=== PATIENT | female | born 1990 | race Two or more races ===

== ENCOUNTER 2020-03-01 20:08 | Inpatient (IN) | payer MEDICAID ==
[~2020-03-01] VITALS: Ht 152.4 cm; Wt 115.7 kg
[2020-03-01] MEDS ORDERED: PREN-182 PO (20:17)
[2020-03-01] MEDS ORDERED: CARBOPROST TROMETHAMINE 250 MCG/ML AMPUL IM PRN (21:30)
[2020-03-01] MEDS ORDERED: NALOXONE HCL 0.4 MG/ML 1ML VIAL IM PRN (21:30)
[2020-03-01] MEDS ORDERED: LACTATED RINGERS 1,000 ML IV SCH (21:30)
[2020-03-01] MEDS ORDERED: DEXT 5%/LR + PITOCIN 20UNITS/L 1,000 ML IV SCH (21:30)
[2020-03-01] MEDS ORDERED: METHYLERGONOVINE MALEATE 0.2 MG/ML IM PRN (21:30)
[2020-03-01 21:45] LABS: BASOPHILS % 0.4 % (0.0-2.0); EOSINOPHILS % 1.1 % (0.0-5.0); HEMATOCRIT. 34.9 % (36.0-48.0); HEMOGLOBIN. 11.9 g/dL (12.0-16.0); LYMPHOCYTES % 13.9 % (20.0-50.0); MEAN CORPUSCULAR HEMOGLOBIN 33.4 pg (28.0-32.0); MEAN CORPUSCULAR VOLUME 97.7 fL (81.0-99.0); MEAN PLATELET VOLUME 9.9 fl (7.4-10.4); MONOCYTES % 8.1 % (2.0-8.0); NEUTROPHILS % 76.5 % (40.0-76.0); PLATELET 161 x1000/uL (130-400); RED BLOOD CELL COUNT 3.57 mill/uL (4.2-5.4); RED CELL DISTRIBUTION WIDTH 13.8 % (11.6-14.6)
[2020-03-01 21:46] LABS: CLARITY URINE TURBID (CLEAR); COLOR URINE ORANGE (YELLOW); KETONES URINE TRACE (NEGATIVE); LEUKOCYTE ESTERASE URINE 1+ (NEGATIVE); NITRITE URINE NEGATIVE (NEGATIVE); OCCULT BLOOD URINE 3+ (NEGATIVE); PROTEIN URINE 2+ (NEGATIVE); SPECIFIC GRAVITY URINE 1.019 (1.005-1.030); UROBILINOGEN URINE 0.2 E.U./dL (0.2-1.0)
[2020-03-01] MEDS ORDERED: FENTANYL CITRATE/PF 50MCG/ML 2ML VIAL ONE (21:48)
[2020-03-01] MEDS ORDERED: MORPHINE SULFATE/PF 1MG/ML 10ML AMP ONE (21:48)
[2020-03-01] MEDS ORDERED: SODIUM CHLORIDE 0.9% 10ML VIAL ONE (21:48)
[2020-03-01] MEDS ORDERED: PHENYLEPHRINE HCL 10 MG/ML 1ML (IV VIAL) IV ONE (21:48)
[2020-03-01] MEDS ORDERED: OXYTOCIN 10 UNITS/ML 1ML ONE (21:48)
[2020-03-01] MEDS ORDERED: EPHEDRINE SULFATE 50MG/ML VIAL ONE (21:49)
[2020-03-01] MEDS ORDERED: CLINDAMYCIN 900 MG PREMIX 50 ML IV ONE (21:49)
[2020-03-01] MEDS ORDERED: METOCLOPRAMIDE HCL 10MG/2ML VIAL ONE (21:49)
[2020-03-01] MEDS ORDERED: ONDANSETRON HCL 4MG/2ML INJ ONE (21:49)
[2020-03-01 21:53] LABS: PROTHROMBIN TIME 10.4 sec (9.6-11.0)
[2020-03-01 21:58] LABS: *AMPHETAMINES SCREEN URINE NEGATIVE (NEGATIVE); *BARBITURATES SCREEN URINE NEGATIVE (NEGATIVE); *BENZODIAZEPINES SCREEN URINE NEGATIVE (NEGATIVE); *COCAINE SCREEN URINE NEGATIVE (NEGATIVE); METHADONE URINE SCREEN NEGATIVE (NEGATIVE); OPIATES URINE SCREEN NEGATIVE (NEGATIVE)
[2020-03-01 21:59] LABS: CANNABINOID URINE SCREEN NEGATIVE (NEGATIVE); PHENCYCLIDINE URINE SCREEN NEGATIVE (NEGATIVE)
[2020-03-02] VITALS (7 sets, daily range): BP systolic 115–130; BP diastolic 64–78
[2020-03-02] MEDS ORDERED: ONDANSETRON HCL 4MG/2ML INJ IV PRN ×2 (00:15→00:30)
[2020-03-02] MEDS ORDERED: HYDROMORPHONE HCL/PF 2MG/ML CPJ IV PRN (00:15)
[2020-03-02] MEDS ORDERED: METOCLOPRAMIDE HCL 10MG/2ML VIAL IV ONE (00:15)
[2020-03-02] MEDS ORDERED: MEPERIDINE HCL/PF 25MG/ML CPJ IV PRN (00:15)
[2020-03-02] MEDS ORDERED: HEMORRHOIDAL SUPP PR PRN (00:30)
[2020-03-02] MEDS ORDERED: IBUPROFEN 400MG TABLET PO PRN (00:30)
[2020-03-02] MEDS ORDERED: LANOLIN OINT 7GM TUBE TOP PRN (00:30)
[2020-03-02] MEDS ORDERED: ACETAMINOPHEN WITH CODEINE 300/30MG TABLET PO PRN (00:30)
[2020-03-02] MEDS ORDERED: DEXT 5%/LR + PITOCIN 20UNITS/L 1,000 ML IV SCH (00:30)
[2020-03-02] MEDS ORDERED: BISACODYL 10MG SUPP PR PRN (00:30)
[2020-03-02] MEDS ORDERED: DIPHENHYDRAMINE 25MG CAPSULE PO PRN (00:30)
[2020-03-02] MEDS ORDERED: LACTATED RINGERS 1,000 ML IV SCH (05:30)
[2020-03-02] MEDS: MAGNESIUM/ALUMINUM HYDROXIDE/SIMETHICONE 30ML UDC PO SCH ×4 (08:25→20:17)
[2020-03-02] MEDS: SIMETHICONE 80MG TABLET CHEW PO SCH ×4 (08:26→20:18)
[2020-03-02] MEDS: PRENATAL VIT/FE FUMARATE/FA TABLET PO SCH (08:26)
[2020-03-02] MEDS: IBUPROFEN 800MG TABLET PO PRN (20:19)
[2020-03-02] MEDS ORDERED: DOCUSATE SODIUM 100MG CAPSULE PO SCH (21:00)
[2020-03-03 00:30] VITALS: BP 119/75
[2020-03-03 05:00] VITALS: BP 121/73
[2020-03-03 07:19] LABS: BASOPHILS % 0.2 % (0.0-2.0); EOSINOPHILS % 0.9 % (0.0-5.0); HEMATOCRIT. 33.5 % (36.0-48.0); HEMOGLOBIN. 11.5 g/dL (12.0-16.0); LYMPHOCYTES % 10.2 % (20.0-50.0); MEAN CORPUSCULAR HEMOGLOBIN 33.7 pg (28.0-32.0); MEAN CORPUSCULAR VOLUME 97.9 fL (81.0-99.0); MEAN PLATELET VOLUME 9.9 fl (7.4-10.4); MONOCYTES % 6.6 % (2.0-8.0); NEUTROPHILS % 82.1 % (40.0-76.0); PLATELET 156 x1000/uL (130-400); RED BLOOD CELL COUNT 3.42 mill/uL (4.2-5.4)
[2020-03-03] MEDS ORDERED: IBUP-2030 PO (07:30)
[2020-03-03] MEDS ORDERED: FERROUS SULFATE 325MG TABLET PO SCH (07:30)
[2020-03-03 07:45] VITALS: BP 115/70
[2020-03-03] MEDS: MAGNESIUM/ALUMINUM HYDROXIDE/SIMETHICONE 30ML UDC PO SCH (08:06)
[2020-03-03] MEDS: IBUPROFEN 800MG TABLET PO PRN ×2 (08:06→13:55)
[2020-03-03] MEDS: PRENATAL VIT/FE FUMARATE/FA TABLET PO SCH (08:06)
[2020-03-03] MEDS: SIMETHICONE 80MG TABLET CHEW PO SCH (08:06)
== END 2020-03-03 15:00 | disposition home or self-care (01) | DRG 540 ==
LOC: 8 EST LDRP 20:08 → OBSVTOIN 20:08 → 8 EST LDRP 20:23 → 8EST 03-02 02:24
PROVIDERS: ADMIT Obstetrics & Gynecology; ATTEND Obstetrics & Gynecology
PROC: 10D00Z1 Extraction of Products of Conception, Low, Open Approach (ICD-10-PCS; principal; 2020-03-02)
DX: O34.211 Maternal care for low transverse scar from previous cesarean delivery (principal); O45.93 Premature separation of placenta, unspecified, third trimester; O99.214 Obesity complicating childbirth; O41.8X30 Other specified disorders of amniotic fluid and membranes, third trimester, not applicable or unspecified; Z79.899 Other long term (current) drug therapy; Z37.0 Single live birth; Z3A.38 38 weeks gestation of pregnancy; Z68.42 Body mass index [BMI] 45.0-49.9, adult
CPT/HCPCS: 36415; 80305; 81003; 85025; 86592; 86703; 86762; 86850; 86900; 87340; 88307; 99281; G0378; J2274; J2370; J2405; J2590; J2765; J3010; J3490; Q0163